=== PATIENT | female | born 1970 | race Two or more races ===

== ENCOUNTER 2019-11-30 14:05 | Outpatient (CLI) | payer BC, OTHER | END 2019-11-30 23:59 | disposition home or self-care (01) | LOC: CFH 14:05 → MERGE 14:05 → UNMERGE 14:05 → CFH 23:59 | PROVIDERS: ATTEND Internal Medicine Cardiovascular Disease | DX: Z13.6 Encounter for screening for cardiovascular disorders (principal); E78.2 Mixed hyperlipidemia; R07.9 Chest pain, unspecified | CPT/HCPCS: 75571; 93306 ==

== ENCOUNTER 2020-01-07 18:48 | Emergency (ER) | payer BC, OTHER ==
[~2020-01-07] VITALS: Ht 167.6 cm; Wt 93.0 kg
[2020-01-07] MEDS ORDERED: SODIUM CHLORIDE 0.9% 1,000ML IVBOLUS ONE ×2 (20:00→21:30)
[2020-01-07 20:08] LABS: ALANINE AMINOTRANSFERASE 47 U/L (12-78); ALBUMIN 3.2 g/dL (3.4-5.0); ANION GAP 6 mmol/L (5-15); CALCIUM 8.6 mg/dL (8.5-10.1); CHLORIDE 103 mmol/L (98-107)
[2020-01-07 20:08] LABS: MICROSCOPIC AUTO
[2020-01-07 20:10] LABS: ALKALINE PHOSPHATASE 81 U/L (45-117); BILIRUBIN,TOTAL 0.4 mg/dL (0.2-1.0); TOTAL PROTEIN 7.2 g/dL (6.4-8.2)
[2020-01-07 20:27] LABS: BASOPHILS # (AUTO) 0.03 x10^3/uL (0-0.1); BASOPHILS % (AUTO) 1 % (0-1); EOSINOPHILS # (AUTO) 0.09 x10^3/uL (0-0.4); EOSINOPHILS % (AUTO) 1 % (1-7); LYMPHOCYTES # (AUTO) 1.85 x10^3/uL (1-3.4); LYMPHOCYTES % (AUTO) 29 % (22-44); MD NO; MEAN CORPUSCULAR HEMOGLOBIN 29.2 pg (27.0-34.8); MEAN CORPUSCULAR HGB CONC 32.7 g/dL (32.4-35.8); MEAN CORPUSCULAR VOLUME 89.2 fL (80-100); MEAN PLATELET VOLUME 11.3 fL (7.4-10.4); MONOCYTES # (AUTO) 0.54 x10^3/uL (0.2-0.8); MONOCYTES % (AUTO) 8 % (2-9); NEUTROPHILS # (AUTO) 3.98 x10^3/uL (1.8-6.8); NEUTROPHILS % (AUTO) 61 % (42-75); PLATELET COUNT 184 x10^3/uL (130-400); RED BLOOD COUNT 5.07 x10^6/uL (3.82-5.3); RED CELL DISTRIBUTION WIDTH 12.4 % (9.6-15.2)
[2020-01-07] MEDS ORDERED: SODIUM CHLORIDE FLUSH 10ML SYR IVF ONE (20:30)
[2020-01-07 21:11] LABS: ACETONE, SERUM Trace (Negative)
[2020-01-07 23:19] VITALS: BP 148/78
== END 2020-01-07 23:21 | disposition home or self-care (01) ==
LOC: ED 21:15
DX: E11.65 Type 2 diabetes mellitus with hyperglycemia (principal); R10.9 Unspecified abdominal pain; R53.83 Other fatigue; R00.0 Tachycardia, unspecified
CPT/HCPCS: 80053; 81001; 82010; 82962; 85025; 96360; 96361; 99283; J7030